=== PATIENT | male | born 1955 | race American Indian/Alaskan Native ===

== ENCOUNTER 2019-02-28 06:52 | Day surgery (SDC) | payer MEDICARE, OTHER ==
[2019-02-28] MEDS ORDERED: WATER FOR IRRIG STERILE IR ONE (07:21)
[2019-02-28] MEDS ORDERED: WATER FOR IRRIG STERILE ONE (07:21)
[2019-02-28] MEDS ORDERED: VERSED ONE (07:45)
[2019-02-28] MEDS ORDERED: XYLOCAINE 1% 20 mL ONE (07:45)
[2019-02-28] MEDS ORDERED: DIPRIVAN 10 MG/ML IV ONE ×3 (07:45)
[2019-02-28] MEDS ORDERED: NACL 0.9% 1000 ML 1,000 ML IV SCH (08:00)
--- NOTE | 2019-02-28 08:45 | Anesthesia Day of Surgery ---
Anesthesia Day of Surgery - Day of Surgery Patient Examined: Yes Patient H&P Reviewed: Yes Patient is NPO: Yes Beta Blockers: Yes
--- NOTE | 2019-02-28 08:47 | Anesthesia Consultation ---
Anesthesia Consult and Med Hx Date of service: 02/28/19 - Airway Anesthetic Teeth Evaluation: Poor ROM Head & Neck: Adequate Mental/Hyoid Distance: Adequate Mallampati Class: Class II Intubation Access Assessment: Probably Good - Pre-Operative Health Status ASA Pre-Surgery Classification: ASA3 Proposed Anesthetic Plan: MAC - Pulmonary Hx Sleep Apnea: Yes (CPAP) - Cardiovascular System Hx Hypertension: Yes Hx Cardia Arrhythmia: Yes (AFIB) - Central Nervous System Hx Neuromuscular Disorder: Yes (Arthritis) Hx Psychiatric Problems: No - Other Systems Hx Cancer: Yes (Prostate) Hx Obesity: Yes
--- NOTE | 2019-02-28 08:50 | Short Stay Summary ---
Short Stay Documentation - Allergies and Medications Current Medications: Allergies No Known Allergies Allergy (Verified 09/15/16 06:51) Home Medications Medication Instructions Recorded Confirmed Last Taken Type Adult Low Dose Aspirin EC 81 mg PO DAILY 02/27/19 02/27/19 Unknown History Aleve TAB 1 tab PO PRN PRN 02/27/19 02/27/19 Unknown History Doxazosin 8 mg PO DAILY 02/27/19 02/28/19 02/28/19 History Eliquis 2.5 mg PO BID 02/27/19 02/28/19 02/21/19 History Fish Oil 1 tab PO DAILY 02/27/19 02/27/19 02/26/19 History Latanoprost 0.005% Eye Drop 1 drop OU DAILY 02/27/19 02/28/19 02/28/19 History Lisinopril 40 mg PO DAILY 02/27/19 02/28/19 02/28/19 History Metoprolol 50 mg PO DAILY 02/27/19 02/28/19 02/28/19 History Vitamin D3 1 tab PO DAILY 02/27/19 02/27/19 Unknown History amLODIPine 10 mg PO DAILY 02/27/19 02/28/19 02/28/19 History Fluticasone 1 spray INTRANASAL DAILY 02/28/19 02/28/19 02/28/19 History Hydrochlorothiazide 12.5 mg PO DAILY 02/28/19 02/28/19 02/28/19 History Active Medications Sodium Chloride (Nacl 0.9% 1000 Ml) 1,000 mls @ 50 mls/hr IV DIRECT CHERI Last Admin: 02/28/19 07:44 Dose: 50 mls/hr Documented by: - Brief post op/procedure progress note Date of procedure: 02/28/19 Pre-op diagnosis: 1. Anemia 2. Colon cancer screening Post-op diagnosis: same (EGD: 1. Duodenal ulcer 2. Duodenitis 3. Gastritis Colonoscopy: 1. Internal hemorrhoids 2. Diverticulosis coli) Procedure: 1. EGD with biopsy 2. Colonoscopy Anesthesia: MAC Findings: as above Surgeon: SARAH WESTBROOK Estimated blood loss: none Pathology: list (1. Antrum) Specimen disposition: to lab Condition: stable - Disposition Condition at discharge: Stable Disposition: DC-01 TO HOME OR SELFCARE Short Stay Discharge Plan Activity: no restrictions Weight Bearing Status: Full Weight Bearing Diet: regular, low salt Additional Instructions: Post Sedation D/C Instructions When you return home you may resume your regular diet unless otherwise directed. -Go directly home from the hospital and rest quietly. You may resume normal activities tomorrow. -Do NOT drive, return to work, operate any machinery or make any important personal or business decisions today. -Do NOT drink any alcohol or take nerve or sleeping drugs. They add to the effects of the medicine still present in your body. -NO ASPIRIN OR BLOOD THINNERS NEXT 1-2 DAYS -START TAKING FIBER DAILY WITH LIQUIDS Follow up with: ORTIZ CUEVAS MD [Primary Care Provider] - 7 Days
[2019-02-28 09:04] VITALS: BP 119/77
== END 2019-02-28 06:53 | disposition home or self-care (01) ==
LOC: GIO 06:52
PROVIDERS: ATTEND Internal Medicine Gastroenterology
DX: K29.70 Gastritis, unspecified, without bleeding (principal); D50.0 Iron deficiency anemia secondary to blood loss (chronic); K64.0 First degree hemorrhoids; K29.80 Duodenitis without bleeding; K57.30 Diverticulosis of large intestine without perforation or abscess without bleeding; K21.9 Gastro-esophageal reflux disease without esophagitis; K26.3 Acute duodenal ulcer without hemorrhage or perforation; H40.9 Unspecified glaucoma; E78.00 Pure hypercholesterolemia, unspecified; I48.91 Unspecified atrial fibrillation; M19.90 Unspecified osteoarthritis, unspecified site; G47.30 Sleep apnea, unspecified; E66.9 Obesity, unspecified; Z68.34 Body mass index [BMI] 34.0-34.9, adult; Z98.890 Other specified postprocedural states; Z86.010 Personal history of colon polyps; Z79.899 Other long term (current) drug therapy; Z85.068 Personal history of other malignant neoplasm of small intestine; Z85.46 Personal history of malignant neoplasm of prostate
CPT/HCPCS: 43239; 45378; 88305; 88342; J2250; J2704; J7030

== ENCOUNTER 2019-08-01 05:58 | Day surgery (SDC) | payer MEDICARE ==
[~2019-08-01 05:58] MED LIST: NACL 0.9% 1000 ML 1,000 ML IV SCH
[2019-08-01] MEDS ORDERED: NACL 0.9% 1000 ML 1,000 ML IV SCH (07:00)
[2019-08-01] MEDS ORDERED: DIPRIVAN 10 MG/ML IV ONE ×2 (08:23)
--- NOTE | 2019-08-01 08:41 | Short Stay Summary ---
Short Stay Documentation - Allergies and Medications Current Medications: Allergies No Known Allergies Allergy (Verified 09/15/16 06:51) Home Medications Medication Instructions Recorded Confirmed Last Taken Type Adult Low Dose Aspirin EC 81 mg PO DAILY 02/27/19 07/31/19 Unknown History Aleve TAB 1 tab PO PRN PRN 02/27/19 07/31/19 Unknown History Doxazosin 8 mg PO DAILY 02/27/19 08/01/19 07/31/19 History Eliquis 2.5 mg PO BID 02/27/19 08/01/19 07/24/19 History Fish Oil 1 tab PO DAILY 02/27/19 07/31/19 02/26/19 History Latanoprost 0.005% Eye Drop 1 drop OU DAILY 02/27/19 07/31/19 02/28/19 History Lisinopril 40 mg PO DAILY 02/27/19 08/01/19 07/31/19 History Metoprolol 50 mg PO DAILY 02/27/19 08/01/19 07/31/19 History Vitamin D3 1 tab PO DAILY 02/27/19 07/31/19 Unknown History amLODIPine 10 mg PO DAILY 02/27/19 08/01/19 07/31/19 History Fluticasone 1 spray INTRANASAL DAILY 02/28/19 07/31/19 02/28/19 History Hydrochlorothiazide 12.5 mg PO DAILY 02/28/19 08/01/19 07/31/19 History Irene Allergy 60 mg PO DAILY 07/31/19 07/31/19 Unknown History Arginine 500 mg PO DAILY 07/31/19 07/31/19 Unknown History Potassium 99 mg PO DAILY 07/31/19 07/31/19 Unknown History Singulair 10 mg PO PRN PRN 07/31/19 07/31/19 Unknown History traZODone 50 mg PO PRN PRN 07/31/19 08/01/19 Unknown History Active Medications Sodium Chloride (Nacl 0.9% 1000 Ml) 1,000 mls @ 50 mls/hr IV DIRECT CHERI Last Admin: 08/01/19 07:53 Dose: 50 mls/hr Documented by: - Brief post op/procedure progress note Date of procedure: 08/01/19 Pre-op diagnosis: 1. Acute GI bleeing 2. Anemia due to acute blood loss Post-op diagnosis: same (1. GERD 2. gastritis (mild) 3. Duodenitis (mild)) Procedure: EGD with biopsy Anesthesia: MAC Findings: as above Surgeon: SARAH WESTBROOK Estimated blood loss: none Pathology: none Condition: stable - Disposition Condition at discharge: Stable Disposition: DC-01 TO HOME OR SELFCARE Short Stay Discharge Plan Weight Bearing Status: Full Weight Bearing Diet: regular, low salt Follow up with: ORTIZ CUEVAS MD [Primary Care Provider] - 7 Days
[2019-08-01 09:09] VITALS: BP 147/81
--- NOTE | 2019-08-01 13:26 | Anesthesia Consultation ---
Anesthesia Consult and Med Hx Date of service: 08/01/19 - Airway Anesthetic Teeth Evaluation: Poor ROM Head & Neck: Adequate Mental/Hyoid Distance: Adequate Mallampati Class: Class II Intubation Access Assessment: Probably Good - Cardiac Exam Anesthetic Concerns: History of paroxysmal Atrial Fibrillation; on Eliquis - Pre-Operative Health Status ASA Pre-Surgery Classification: ASA3 Proposed Anesthetic Plan: MAC - Pulmonary Hx Sleep Apnea: Yes (CPAP at night) - Cardiovascular System Hx Hypertension: Yes Hx Cardia Arrhythmia: Yes (AFIB) - Central Nervous System Hx Neuromuscular Disorder: Yes (Arthritis) Hx Psychiatric Problems: No - Gastrointestinal Hx Ulcer: Yes (PUD) - Hematic Hx Anemia: Yes - Other Systems Hx Cancer: Yes Hx Obesity: Yes
--- NOTE | 2019-08-01 13:30 | Anesthesia Day of Surgery ---
Anesthesia Day of Surgery - Day of Surgery Patient Examined: Yes Patient H&P Reviewed: Yes Patient is NPO: Yes Beta Blockers: Yes Cardiac Clearance: Yes
== END 2019-08-01 05:59 | disposition home or self-care (01) ==
LOC: GIO 05:58
PROVIDERS: ATTEND Internal Medicine Gastroenterology
DX: K29.70 Gastritis, unspecified, without bleeding (principal); K29.80 Duodenitis without bleeding; K21.9 Gastro-esophageal reflux disease without esophagitis; H40.9 Unspecified glaucoma; I42.9 Cardiomyopathy, unspecified; E78.00 Pure hypercholesterolemia, unspecified; I48.91 Unspecified atrial fibrillation; I10 Essential (primary) hypertension; G47.30 Sleep apnea, unspecified; E66.9 Obesity, unspecified; M19.90 Unspecified osteoarthritis, unspecified site; Z85.038 Personal history of other malignant neoplasm of large intestine; Z85.46 Personal history of malignant neoplasm of prostate; Z85.830 Personal history of malignant neoplasm of bone; Z79.899 Other long term (current) drug therapy; Z80.0 Family history of malignant neoplasm of digestive organs; Z68.34 Body mass index [BMI] 34.0-34.9, adult; Z98.890 Other specified postprocedural states; Z86.2 Personal history of diseases of the blood and blood-forming organs and certain disorders involving the immune mechanism
CPT/HCPCS: 43235; J2704; J7030

== ENCOUNTER 2021-09-08 10:37 | Outpatient (CLI) | payer MEDICARE ==
--- NOTE | 2021-09-08 13:49 | Cat Scan Report ---
CT OF CHEST WITHOUT CONTRAST INDICATION: GOITER CONTRAST: Without IV COMPARISON: None available. All CT scans at this location are performed using CT dose reduction for ALARA by means of automated e xposure control. FINDINGS: Review of the bony structures shows prominent left and moderate right glenohumeral degenera tive changes. The right manubrium of the sternum shows a prominent lytic lesion measuring 3 cm. Minim al posterior soft tissue bulging is seen in an area of cortical breakthrough. Cortex is thinned and/o r absent in several areas anteriorly and posteriorly. No other focal bony lesions are seen. No significant axillary or chest wall lesions are seen. The right lobe of the thyroid is massively en larged and heterogenous in appearance multiple areas of hypodensity with thickened lopez. There is pr ominent substernal extension nearly to the carinal. Right lobe is not fully visualized in its upper p ortion but length is roughly 12 cm with transverse width of 2 7.8 cm. There is dominant deviation of the trachea and esophagus to the left. Fat planes are blurred between the mass and these 2 structures . Mild blurring of fat planes is seen with other soft tissues at the neck/chest junction. Left lobe i s slightly heterogenous and may have a 12 mm hypodense lesion. No other mediastinal lesions are seen. I do not see adenopathy in the supraclavicular regions or visualized lower neck. No hilar masses are seen. Minimal pericardial effusion is seen. Slight coronary artery calcifications are noted. No significant pleural effusions are seen. No obvious endobronchial lesions are noted. Lung arreola sh ow mild atelectasis and/or scarring in the left lower lobe but no definite pneumonic infiltrates. Lat erally in the right apex periphery a 2 mm nodule is seen and inferiorly in the right upper lobe a 1 m m nodule is noted. In the lateral aspect of the right lower lobe a 6 mm solid nodule is seen. Lateral ly in the left upper lobe a solid nodule is seen measuring 3 mm. Also the lateral periphery left uppe r lobe there is a curvilinear 4 mm possible nodule. Laterally in the left lower lobe 3 nodules are se en measuring up to 4 mm. IMPRESSION: 1. Huge right lobe thyroid mass with prominent substernal extension. Fat planes are ill-defined in mu ltiple areas and invasion of adjacent structures is not excluded. 2. Right manubrial large lytic lesion consistent with metastatic disease. This is not clearly a direc t extension from the thyroid mass though is in proximity. 3. Pulmonary nodularity. Particularly on the right lower lobe metastatic disease is not excluded. Signer Name: Surya Ferris MD Signed: 09/08/2021 1:45 PM Workstation Name: [id number]
--- NOTE | 2021-09-08 13:53 | Cat Scan Report ---
CT NECK WITHOUT CONTRAST HISTORY: Goiter COMPARISON: None. TECHNIQUE: Routine CT of the neck is performed without intravenous contrast. [facility] are [facility] using CT dose reduction for ALARA by means of automated exposure control CONTRAST: None FINDINGS: Thyroid: Both lobes of the thyroid and isthmus are markedly enlarged right more than left; despite ir regular borders, well defined contour. Focal areas of calcification seen in the enlarged left lobe. L ower attenuation areas are seen in the inferior right lobe. Substernal extension: There is extension into the thorax. However, inferior extent was not imaged. Suprahyoid extension: Not present Trachea: Markedly displaced towards the left side; more than 50% narrowing of the trachea lumen of th e second and probably third tracheal ring Retroesophageal extension: There is extension behind the esophagus from the right side Skull Base: No significant abnormality. Parotid, Carotid, Retropharyngeal, Prevertebral, Pharyngeal Mucosal, and Reconciliation Coordinator Spaces: Both paro tid glands have increased is CT attenuation suggesting sialadenitis; submandibular glands are normal; sublingual space normal; pharyngeal mucosal space normal Airway: Trachea is deviated towards the left side; more than 50% narrowing at the level of the second and third tracheal rings Larynx: Incidental larynx is displaced towards left side; supraglottic and glottic and subglottic lar ynx normal; internal laryngocele on the left side Lymphatics: No lymphadenopathy. Vasculature: No significant abnormality. Osseous Structures: No significant abnormality Additional findings: None. 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
== END 2021-09-08 10:38 | disposition home or self-care (01) ==
LOC: CT 10:37
PROVIDERS: ATTEND Internal Medicine Critical Care Medicine
DX: R91.1 Solitary pulmonary nodule (principal); E04.9 Nontoxic goiter, unspecified; R93.89 Abnormal findings on diagnostic imaging of other specified body structures; M47.814 Spondylosis without myelopathy or radiculopathy, thoracic region; I25.10 Atherosclerotic heart disease of native coronary artery without angina pectoris; E04.2 Nontoxic multinodular goiter
CPT/HCPCS: 70490; 71250